=== PATIENT | male | born 1945 | race Caucasian/White ===

== ENCOUNTER 2016-09-07 07:29 | Day surgery (SDC) | payer MEDICARE, OTHER ==
--- NOTE | ~2016-09-07 | EGD ---
EGD REPORT [facility] [address] [address] NAME: MARK BUCIO : [birth year] STATUS : REG [facility]#: [id number] AGE: 70 ADM/REG DATE : 09/07/16 MR#: [id number] REPORT SERV DATE: 09/07/16 DICTATED BY: REBA MEDEROS DATE: 09/07/16 REPORT STATUS : Draft TRANSCRIBED BY: [facility] DATE: 09/07/16 Endoscopy Center Patient Name: Mark Bucio Date of : 1945 Attending MD: REBA MEDEROS MD Procedure Date No Time: 09/07/2016 Procedure: Colonoscopy Indications: High risk colon cancer surveillance: Personal history of colonic polyps Referring MD: SONAL KEITH Medicines: as per anesthesia Complications: No immediate complications. Procedure: Pre-Anesthesia Assessment: - ASA Grade Assessment: III - A patient with severe systemic disease. After I obtained informed consent, the scope was passed under direct vision. Throughout the procedure, the patient's blood pressure, pulse, and oxygen saturations were monitored continuously. The PCF [id number] was introduced through the anus and advanced to the cecum, identified by appendiceal orifice and ileocecal valve. The colonoscopy was performed without difficulty. The patient tolerated the procedure. The quality of the bowel preparation was fair. Findings: The perianal and digital rectal examinations were normal. There was evidence of a prior end-to-end colo-colonic anastomosis in the sigmoid colon. This was patent. This was characterized by healthy appearing mucosa. This was traversed. Three sessile polyps were found in the ascending colon. The polyps were 3 to 5 mm in size. These polyps were removed with a jumbo cold forceps. Resection and retrieval were complete. Five sessile polyps were found in the transverse colon. The polyps were 3 to 6 mm in size. These polyps were removed with a jumbo cold forceps. Resection and retrieval were complete. A sessile polyp was found in the rectum. The polyp was 6 mm in size. The polyp was removed with a jumbo cold forceps. Resection and retrieval were complete. A few small-mouthed diverticula were found in the transverse colon. Internal hemorrhoids were found during endoscopy and were mild. Impression: - Patent end-to-end colo-colonic anastomosis. - Three 3 to 5 mm polyps in the ascending colon. Resected and retrieved. EGD REPORT [address] [address] NAME: MARK BUCIO : [birth year] STATUS : REG [facility] PAT#: [id number] AGE: 70 ADM/REG DATE : 09/07/16 MR#: [id number] REPORT SERV DATE: 09/07/16 DICTATED BY: REBA MEDEROS DATE: 09/07/16 REPORT STATUS : Draft TRANSCRIBED BY: [employer] DATE: 09/07/16 - Five 3 to 6 mm polyps in the transverse colon. Resected and retrieved. - One 6 mm polyp in the rectum. Resected and retrieved. - Diverticulosis in the transverse colon. - Internal hemorrhoids. Recommendation: - Await pathology results. - Repeat colonoscopy for surveillance based on pathology results. Procedure Code(s): --- Professional --- 59544, Colonoscopy, flexible, proximal to splenic flexure; with biopsy, single or multiple Diagnosis Code(s): --- Professional --- Z98.0, Intestinal bypass and anastomosis status K62.1, Rectal polyp D12.3, Benign neoplasm of transverse colon D12.2, Benign neoplasm of ascending colon K64.8, Other hemorrhoids K57.30, Diverticulosis of large intestine without perforation or abscess without bleeding Z86.010, Personal history of colonic polyps CPT copyright 2013 [employer]. All rights reserved. The codes documented in this report are preliminary and upon lpn instructor review may be revised to meet current compliance requirements. REBA MEDEROS MD 09/07/2016 9:56 AM This report has been signed electronically. Number of Addenda: 0 Note Initiated On: 09/07/2016 8:48 AM Scope Withdrawal Time 0 hours 30 minutes 26 seconds [address] [id number]
--- NOTE | ~2016-09-07 | EGD ---
EGD REPORT [facility] [address] [address] NAME: MARK BUCIO : [birth year] STATUS : REG [facility]#: [id number] AGE: 70 ADM/REG DATE : 09/07/16 MR#: [id number] REPORT SERV DATE: 09/07/16 DICTATED BY: REBA MEDEROS DATE: 09/07/16 REPORT STATUS : Draft [facility]ED [facility]: [facility] DATE: 09/07/16 Endoscopy Center Patient Name: Mark Bucio Date of : 1945 Attending MD: REBA MEDEROS MD Procedure Date No Time: 09/07/2016 Procedure: Upper GI endoscopy Indications: Cirrhosis with suspected esophageal varices, Esophageal varices Referring MD: SONAL KEITH Medicines: as per anesthesia Complications: No immediate complications. Procedure: Pre-Anesthesia Assessment: - ASA Grade Assessment: III - A patient with severe systemic disease. After obtaining informed consent, the endoscope was passed under direct vision. Throughout the procedure, the patient's blood pressure, pulse, and oxygen saturations were monitored continuously. The GIF H190 [id number] was introduced through the mouth, and advanced to the third part of duodenum. The upper GI endoscopy was accomplished without difficulty. The patient tolerated the procedure well. Findings: Grade II varices were found in the middle third of the esophagus and in the lower third of the esophagus. A diverticulum with a small opening was found in the middle third of the esophagus. The entire examined stomach was normal. The cardia and gastric fundus were normal on retroflexion. The examined duodenum was normal. Impression: - Grade II esophageal varices. - Diverticulum in the middle third of the esophagus. - Normal stomach. - Normal examined duodenum. Recommendation: - Continue present medications. Procedure Code(s): --- Professional --- 90214, Esophagogastroduodenoscopy, flexible, transoral; diagnostic, including collection of specimen(s) by brushing or washing, when performed (separate procedure) EGD REPORT [facility] [address] [place]. [address] NAME: MARK BUCIO : [birth year] STATUS : REG [facility]#: [id number] AGE: 70 ADM/REG DATE : 09/07/16 MR#: [id number] REPORT SERV DATE: 09/07/16 DICTATED BY: REBA MEDEROS DATE: 09/07/16 REPORT STATUS : Draft TRANSCRIBED BY: [employer] DATE: 09/07/16 Diagnosis Code(s): --- Professional --- I85.10, Secondary esophageal varices without bleeding Q39.6, Congenital diverticulum of esophagus K74.60, Unspecified cirrhosis of liver I85.00, Esophageal varices without bleeding CPT copyright 2013 [employer]. All rights reserved. The codes documented in this report are preliminary and upon biofuels product development manager review may be revised to meet current compliance requirements. REBA MEDEROS MD 09/07/2016 9:13 AM This report has been signed electronically. Number of Addenda: 0 Note Initiated On: 09/07/2016 8:52 AM Scope Withdrawal Time 0 hours 0 minutes 0 seconds [address] [place] [address]
[~2016-09-07 07:29] MED LIST: BYSTOLIC20 MG PO; GLUCOPHAGE1000 MG PO; GLUCPH PO; GLUCXL10 PO; GLUCXL5 PO; L40 PO; MAGOX4 PO; PRAVACHOL40 MG PO; PROTONIX PO; SPIRO25 PO; ZESTORETIC1 TAB PO
[2016-12-07] MEDS ORDERED: JANUVIA50 PO (04:11)
[2016-12-08] MEDS ORDERED: CONSTULOSE (11:14)
[2016-12-08] MEDS ORDERED: CONSTULOSE PO (11:18)
== END 2016-09-07 23:59 | disposition home or self-care (01) ==
LOC: DMU 07:29
PROVIDERS: Internal Medicine Gastroenterology
PROC: 0DBL8ZZ Excision of Transverse Colon, Via Natural or Artificial Opening Endoscopic (ICD-10-PCS; 2016-09-07)
PROC: 0DJ08ZZ Inspection of Upper Intestinal Tract, Via Natural or Artificial Opening Endoscopic (ICD-10-PCS; 2016-09-07)
PROC: 0DBK8ZZ Excision of Ascending Colon, Via Natural or Artificial Opening Endoscopic (ICD-10-PCS; principal; 2016-09-07 09:00)
PROC: 0DBP8ZZ Excision of Rectum, Via Natural or Artificial Opening Endoscopic (ICD-10-PCS; 2016-09-07 09:00)
DX: D12.3 Benign neoplasm of transverse colon (principal); D12.2 Benign neoplasm of ascending colon; D12.8 Benign neoplasm of rectum; K57.30 Diverticulosis of large intestine without perforation or abscess without bleeding; K62.1 Rectal polyp; I85.10 Secondary esophageal varices without bleeding; Q39.6 Congenital diverticulum of esophagus; M19.90 Unspecified osteoarthritis, unspecified site; E11.40 Type 2 diabetes mellitus with diabetic neuropathy, unspecified; E78.00 Pure hypercholesterolemia, unspecified; E66.9 Obesity, unspecified; I10 Essential (primary) hypertension; G47.33 Obstructive sleep apnea (adult) (pediatric); Z98.0 Intestinal bypass and anastomosis status; Z86.010 Personal history of colon polyps; Z79.899 Other long term (current) drug therapy; Z98.890 Other specified postprocedural states; Z99.89 Dependence on other enabling machines and devices
CPT/HCPCS: 82962; 88305; J2370; J2550